=== PATIENT | female | born 1940 | race Caucasian/White ===

== ENCOUNTER 2017-10-22 10:44 | Outpatient (CLI) | payer MEDICARE, BC ==
[2017-10-22] MEDS ORDERED: Iopamidol 370 76% 100 ML VIAL ONE (16:19)
== END 2017-10-22 10:45 | disposition home or self-care (01) ==
LOC: BICCT 10:44
PROVIDERS: ATTEND Family Medicine
DX: R22.1 Localized swelling, mass and lump, neck (principal)
CPT/HCPCS: 70491

== ENCOUNTER 2018-05-26 14:26 | Outpatient (CLI) | payer MEDICARE, BC ==
--- NOTE | 2018-05-26 15:48 | ULT ---
CAROTID DOPPLER ULTRASOUND EVALUATION: History: Carotid stenosis. FINDINGS: Multiple longitudinal and transverse images of the carotid artery obtained using a multihertz linear array transducer. Real-time, color flow, and spectral waveform doppler analysis used to evaluate the carotid arteries. Images demonstrate minimal focal atherosclerotic plaque in the origin of the right and left internal carotid arteries resulting in approximately 20% bilateral ICA stenosis. This is not flow limiting. No evidence of spectral broadening seen. No evidence of other common or internal carotid artery disea se seen. Antegrade flow is seen in both vertebral arteries. IMPRESSION: Minimal bilateral ICA focal areas of calcified stenosis resulting in approximately 20% bilateral ICA stenosis. POS: [facility]
== END 2018-05-26 14:27 | disposition home or self-care (01) ==
LOC: BICULT 14:26
PROVIDERS: ATTEND Family Medicine
DX: I65.23 Occlusion and stenosis of bilateral carotid arteries (principal)
CPT/HCPCS: 93880

== ENCOUNTER 2018-07-01 13:58 | Outpatient (CLI) | payer MEDICARE, BC ==
[~2018-07-01 13:58] MED LIST: Gadobenate Dimeglumine 529 MG/1 ML (20ML VIAL) ONE
--- NOTE | 2018-07-01 17:53 | MRI ---
BRAIN AND ORBIT MRI WITH AND WITHOUT CONTRAST: 07/01/18 COMPARISON: 07/02/16. HISTORY: Optic neuropathy. Left eye vision loss, unable to fixate her eyes since March. Patient has a past me dial history of stroke and breast cancer. TECHNIQUE: Brain and orbit MRI performed with and without intravenous gadolinium administration. Multisequential , multiplanar imaging is performed. FINDINGS: MRI BRAIN: Calvarium has a normal marrow signal intensity. Midline brain parenchymal structures are unremarkable . No parenchymal mass, mass effect, or midline shift. Brain volume is age appropriate. Cortical ortiz-wh ite matter differentiation is preserved. Ventricles and sulci are patent and symmetric. There are confluent T2 and FLAIR white matter hyperintensities. Absent restricted diffusion. No acute infarct. No pathologic enhancement of the brain parenchyma. The calvarium has a normal T1 marrow signal intens ity. Midline brain parenchymal structures are unremarkable. No pathologic enhancement of the brain parenchyma. Adequate aeration of the visualized sinuses and ma stoid air cells. There are confluent T2 and FLAIR white matter hyperintensities without evidence of associated enhance ment or restricted diffusion. 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 Bilateral ocular lenses are appropriately located. Both globes are intact. Retrobulbar fat is preserv ed. Symmetric signal intensity of the optic nerves and ocular rectus muscles. The optic chiasm, prech iasmatic optic nerve, intra-canalicular and intraorbital optic nerves have symmetric signal intensity . Note, bilateral ocular lens implants are noted. There is no abnormal enhancement of the optic nerves. Sella and infundibulum are unremarkable. IMPRESSION: 1. Chronic small vessel ischemic change of white matter. 2. No abnormal enhancement or pathologic enhancement of the brain parenchyma. 3. Symmetric signal intensity of the optic nerves. POS: [facility]
== END 2018-07-01 13:59 | disposition home or self-care (01) ==
LOC: BICMRI 13:58
DX: H53.413 Scotoma involving central area, bilateral (principal); H46.9 Unspecified optic neuritis
CPT/HCPCS: 70553; 82565; A9579

== ENCOUNTER 2018-07-15 14:40 | Outpatient (CLI) | payer MEDICARE, BC ==
--- NOTE | 2018-07-15 16:22 | ULT ---
SONOGRAM LEFT BREAST LIMITED: 07/15/18 HISTORY: Left breast lump. Four months. Prior left breast cancer with mastectomy. Reconstruction. FINDINGS: Sonographic evaluation of the superolateral aspect of the reconstructed left breast shows fatty tissu e. In the areas of palpable concern, densely echogenic structures are present with posterior shadowin g. This has the appearance of calcification. No solid masses are visible. Subsequently performed diagnostic mammogram confirms large areas of dystrophic calcification. IMPRESSION: Dense dystrophic calcification, consistent with postoperative changes, in region of palpable concern. No aggressive processes. BIRADS 2: Benign Finding(s) Routine annual screening mammography (for women over age 40). POS: [facility]
== END 2018-07-15 14:41 | disposition home or self-care (01) ==
LOC: BICULT 14:40
PROVIDERS: ATTEND Family Medicine
DX: N63.20 Unspecified lump in the left breast, unspecified quadrant (principal); R92.1 Mammographic calcification found on diagnostic imaging of breast; Z85.3 Personal history of malignant neoplasm of breast; Z98.890 Other specified postprocedural states
CPT/HCPCS: 76642; 77065; G0279

== ENCOUNTER 2021-01-02 12:17 | Day surgery (SDC) | payer MEDICARE, BC ==
[2021-01-02] MEDS ORDERED: Acetaminophen 325 MG TAB PO SCH (12:30)
[2021-01-02 14:10] LABS: #Basophils 0.1 thou/uL (0.0-0.2); #Eosinphils 0.1 thou/uL (0.0-0.7); #Lymphocytes 1.6 thou/uL (1.20-3.40); #Monocytes 0.4 thou/uL (0.11-0.59); #Neutrophils 3.7 thou/uL (1.40-6.50); %Basophils 1.1 % (0.0-1.0); %Lymphocytes 27.1 % (21.0-51.0); %Monocytes 6.9 % (0.0-10.0); %Neutrophils 63.9 % (42.0-75.0); Band 21 % (5-11); Eosinophils 1 % (0-10); Hemoglobin 7.7 g/dL (12.0-16.0); Lymphocytes 24 % (21-51); MDiff Complete? YES; Mean Corpuscular HGB CONC 31.5 g/dL (32.0-36.0); Mean Corpuscular Hemoglobin 21.1 pg (27.0-31.0); Mean Corpuscular Volume 67.1 fL (78.0-98.0); Mean Platelet Volume 9.1 fL (7.4-10.4); Microcytosis SLIGHT = 6-15 cells (100X) (0-5/hpf); Monocytes 4 % (0-10); Neutrophil 48 % (42-75); Ovalocytes SLIGHT = 2-5 cells (100X) (0-1/hpf); Platelet Count 429 thou/uL (130-400); Platelet Morphology Comment Appears Adequate; Reactive Lymphocytes 1 % (0-10); Red Blood Cell (RBC) Count 3.65 mill/uL (4.20-5.40); White Blood Cell (WBC) Count 5.9 thou/uL (4.8-10.8)
== END 2021-01-02 14:28 | disposition home or self-care (01) ==
LOC: ONC/OP 12:17
PROVIDERS: ATTEND Physician Assistant Medical
PROC: 30233N1 Transfusion of Nonautologous Red Blood Cells into Peripheral Vein, Percutaneous Approach (ICD-10-PCS; principal; 2021-01-02)
DX: D50.9 Iron deficiency anemia, unspecified (principal)
CPT/HCPCS: 36430; 82607; 85025; 86850; 86900; 86901; P9016

== ENCOUNTER 2021-01-02 14:16 | Emergency (ER) | payer MEDICARE, BC | END 2021-01-02 17:38 | disposition home or self-care (01) | LOC: ERS 14:16 | DX: D50.0 Iron deficiency anemia secondary to blood loss (chronic) (principal); I16.0 Hypertensive urgency; I10 Essential (primary) hypertension; E03.9 Hypothyroidism, unspecified; E78.5 Hyperlipidemia, unspecified; E78.00 Pure hypercholesterolemia, unspecified; Z79.899 Other long term (current) drug therapy; Z85.3 Personal history of malignant neoplasm of breast ==

== ENCOUNTER 2023-11-05 13:55 | Outpatient (CLI) | payer MEDICARE | END 2023-11-05 13:56 | disposition home or self-care (01) | LOC: BICMAMMO 13:55 | PROVIDERS: ATTEND Family Medicine | DX: Z12.31 Encounter for screening mammogram for malignant neoplasm of breast (principal); Z85.3 Personal history of malignant neoplasm of breast; Z80.3 Family history of malignant neoplasm of breast; Z90.12 Acquired absence of left breast and nipple | CPT/HCPCS: 77063; 77067 ==